=== PATIENT | male | born 1940 | race Caucasian/White ===

== ENCOUNTER 2019-06-14 15:37 | Inpatient (IN) | payer MEDICARE ==
[2019-06-13 20:43] VITALS: BP_SYST 104
[~2019-06-14] VITALS: Ht 162.6 cm; Wt 59.0 kg
[2019-06-14 15:47] VITALS: BP_SYST 125
[2019-06-14] MEDS ORDERED: LEVOFLOXACIN 500 MG/D5W 100 ML IV ONE (16:00)
[2019-06-14] MEDS ORDERED: ALBUTEROL SULFATE 0.083% 2.5 MG/3 ML VIAL.NEB INH ONE ×2 (16:00→16:05)
[2019-06-14 16:15] LABS: BASOPHILS % (AUTO) 0.2 % (0.0-2.0); EOSINOPHILS % (AUTO) 0.2 % (0.0-4.0); HEMATOCRIT 33.2 % (36-54); HEMOGLOBIN 10.8 g/dL (14.0-18.0); LYMPHOCYTES # (AUTO) 1.1 K/uL (1.0-5.5); LYMPHOCYTES % (AUTO) 6.5 % (20.5-51.5); MEAN CORPUSCULAR HEMOGLOBIN 30 pg (27-31); MEAN CORPUSCULAR HGB CONC 32 % (32-36); MEAN CORPUSCULAR VOLUME 92 fL (79.0-98.0); MONOCYTES # (AUTO) 0.6 K/uL (0.0-1.0); MONOCYTES % (AUTO) 3.5 % (1.7-9.3); NEUTROPHILS % (AUTO) 89.6 % (40.0-70.0); PLATELET COUNT (AUTO) 419 K/uL (130-430); RED BLOOD CELL COUNT(AUTO) 3.62 MIL/uL (4.2-6.2); RED CELL DISTRIBUTION WIDTH 13.8 % (9.0-15.0); WHITE BLOOD COUNT (AUTO) 16.7 K/uL (4.8-10.8)
[2019-06-14 16:24] LABS: ANION GAP 9 (5-15); CHLORIDE 106 mmol/L (98-107); GLUCOSE 157 mg/dL (70-99); POTASSIUM 4.6 mmol/L (3.5-5.1); SODIUM SERUM 140 mmol/L (136-145); UREA NITROGEN, BLOOD 29 mg/dL (8-21)
[2019-06-14 16:26] LABS: INR 2.7 (0.80-1.20); PROTHROMBIN TIME 26.7 SECS (9.5-12.5)
[2019-06-14 16:30] LABS: ALANINE AMINOTRANSFERASE 50 U/L (12-78); ALBUMIN 2.2 g/dL (3.4-4.8); ASPARTATE AMINOTRANSFERASE 63 U/L (10-37); TOTAL BILIRUBIN 0.6 mg/dL (0.0-1.0)
[2019-06-14] MEDS ORDERED: DILTIAZEM HCL 25 MG/5 ML VIAL IVP ONE (17:15)
[2019-06-14] MEDS ORDERED: DILTIAZEM HCL 125 MG in D5W 100 ML IV ONE (17:15)
[2019-06-14] MEDS ORDERED: DILTIAZEM HCL 125 MG/25 ML VIAL IV ONE (17:44)
[2019-06-14 17:50] LABS: BILIRUBIN,URINE NEGATIVE (NEGATIVE); CLARITY/URINE SL CLOUDY (CLEAR); COLOR,URINE YELLOW (YELLOW); GLUCOSE,URINE NEGATIVE (NEGATIVE); KETONES,URINE NEGATIVE (NEGATIVE); LEUKOCYTE ESTERASE ,URINE 1+ (NEGATIVE); NITRITE, URINE NEGATIVE (NEGATIVE); PH,URINE 5.5 (5.0-8.0); PROTEIN URINE NEGATIVE (NEGATIVE); UROBILINOGEN,URINE 0.2 (0.2-1.0)
[2019-06-14 17:57] LABS: BLOOD, URINE TRACE (NEGATIVE)
[2019-06-14 18:10] LABS: RBC,URINE 0-3 /HPF (0-3)
[2019-06-14 18:11] LABS: BACTERIA,URINE MODERATE /HPF (None Seen); COARSE GRANULAR CASTS,URINE 0-10 /LPF (None Seen); FINE GRANULAR CASTS,URINE 0-10 /LPF (None Seen); MUCUS,URINE 2+ /LPF (None Seen)
[2019-06-14] MEDS ORDERED: DONE5TAB26 PO (18:54)
[2019-06-14] MEDS ORDERED: OSCD500 PO (18:54)
[2019-06-14] MEDS ORDERED: PERC10 PO (18:54)
[2019-06-14] MEDS ORDERED: ALLO100T PO (18:54)
[2019-06-14] MEDS ORDERED: COLC0.6T67 PO (18:54)
[2019-06-14] MEDS ORDERED: MULT-1089 PO (18:54)
[2019-06-14] MEDS ORDERED: SENN8.6T19 PO (18:54)
[2019-06-14] MEDS ORDERED: POLY17PO4 PO (18:54)
[2019-06-14] MEDS ORDERED: WARF1TAB2 PO (18:54)
[2019-06-14] MEDS ORDERED: ACET-2165 PO (18:54)
[2019-06-14] MEDS ORDERED: DILTIAZEM HCL 25 MG/5 ML VIAL IVP SCH (19:00)
[2019-06-14 20:43] VITALS: BP_SYST 104
[2019-06-14 21:00] VITALS: BP_SYST 125
[2019-06-14] MEDS ORDERED: DILTIAZEM HCL 120 MG CAP.SR.24H PO ONE (21:00)
[2019-06-14] MEDS ORDERED: OXYCODONE/ACETAMINOPHEN *10*mg/325 mg TABLET PO PRN (21:00)
[2019-06-14] MEDS ORDERED: ACETAMINOPHEN 325 MG TABLET PO PRN (21:00)
[2019-06-14] MEDS ORDERED: COLCHICINE 0.6 MG TABLET PO PRN (21:00)
[2019-06-14] MEDS ORDERED: cefTRIAXone 1 GM in D5W 50 ML IV SCH (21:15)
[2019-06-14] MEDS: LEVOFLOXACIN 250 MG/D5W 50 ML IV SCH (21:15)
[2019-06-14 22:00] VITALS: BP_SYST 96
[2019-06-14] MEDS: NACL 0.9% 1,000 ML IV SCH (22:48)
[2019-06-14] MEDS ORDERED: cefTRIAXone 1 GM IVPB PREMIX 50 ML IV ONE (22:58)
[2019-06-14 23:00] VITALS: BP_SYST 106
[2019-06-14] MEDS: POLYETHYLENE GLYCOL 3350, 17 GM/ POWD.PACK PO SCH (23:21)
[2019-06-15] VITALS (14 sets, daily range): BP systolic 88–121
[2019-06-15 06:10] LABS: BASOPHILS # (AUTO) 0.1 K/uL (0.0-0.2)
[2019-06-15 06:22] LABS: BASOPHILS % (AUTO) 0.2 % (0.0-2.0); EOSINOPHILS % (AUTO) 0.1 % (0.0-4.0); HEMATOCRIT 27.3 % (36-54); HEMOGLOBIN 8.9 g/dL (14.0-18.0); LYMPHOCYTES # (AUTO) 1.4 K/uL (1.0-5.5); LYMPHOCYTES % (AUTO) 6.2 % (20.5-51.5); MEAN CORPUSCULAR HEMOGLOBIN 30 pg (27-31); MEAN CORPUSCULAR HGB CONC 33 % (32-36); MEAN CORPUSCULAR VOLUME 92 fL (79.0-98.0); MONOCYTES # (AUTO) 1.1 K/uL (0.0-1.0); MONOCYTES % (AUTO) 4.8 % (1.7-9.3); NEUTROPHILS # (AUTO) 19.9 K/uL (1.8-7.7); NEUTROPHILS % (AUTO) 88.7 % (40.0-70.0); PLATELET COUNT (AUTO) 330 K/uL (130-430); RED BLOOD CELL COUNT(AUTO) 2.97 MIL/uL (4.2-6.2); RED CELL DISTRIBUTION WIDTH 13.6 % (9.0-15.0); WHITE BLOOD COUNT (AUTO) 22.5 K/uL (4.8-10.8)
[2019-06-15 06:27] LABS: ALANINE AMINOTRANSFERASE 38 U/L (12-78); ALBUMIN 1.9 g/dL (3.4-4.8); ANION GAP 9 (5-15); ASPARTATE AMINOTRANSFERASE 42 U/L (10-37); CHLORIDE 107 mmol/L (98-107); CREATININE 2.07 mg/dL (0.55-1.30); GLUCOSE 103 mg/dL (70-99); PHOSPHORUS 2.8 mg/dL (2.7-4.5); POTASSIUM 5.1 mmol/L (3.5-5.1); SODIUM SERUM 136 mmol/L (136-145); TOTAL BILIRUBIN 0.6 mg/dL (0.0-1.0); UREA NITROGEN, BLOOD 37 mg/dL (8-21); URIC ACID 6.9 mg/dL (2.4-7.0)
[2019-06-15 06:58] LABS: TOTAL IRON BIND. CAPACITY 128 ug/dL (250-450)
[2019-06-15 08:04] LABS: FREE T4 (FREE THYROXINE) 1.1 ng/dL (0.6-1.6)
[2019-06-15 08:56] LABS: INR 2.7 (0.80-1.20); PROTHROMBIN TIME 26.5 SECS (9.5-12.5)
[2019-06-15] MEDS: DILTIAZEM HCL 120 MG CAP.SR.24H PO SCH (09:00)
[2019-06-15] MEDS: ALLOPURINOL 100 MG TABLET (ZYLOPRIM) PO SCH (09:47)
[2019-06-15] MEDS: POLYETHYLENE GLYCOL 3350, 17 GM/ POWD.PACK PO SCH ×2 (09:47→21:00)
[2019-06-15] MEDS: DONEPEZIL HCL 5 MG TABLET (ARICEPT) PO SCH (09:48)
[2019-06-15] MEDS: SENNOSIDES 8.6 MG TABLET PO SCH (09:48)
[2019-06-15] MEDS: MULTIVITAMINS TAB 1 TABLET PO SCH (09:48)
[2019-06-15] MEDS: NACL 0.9% 1,000 ML IV SCH ×2 (09:49→14:54)
[2019-06-15] MEDS: CALCIUM CARBONATE/VITAMIN D3 1 TAB TABLET PO SCH (09:53)
[2019-06-15] MEDS ORDERED: LEVALBUTEROL HCL 0.63 MG/3 ML VIAL.NEB INH PRN (12:30)
[2019-06-15] MEDS ORDERED: IPRATROPIUM BROM 0.5 MG/2.5 ML VIAL.NEB (ATROVENT) INH PRN (12:30)
[2019-06-15] MEDS: LEVALBUTEROL HCL 0.63 MG/3 ML VIAL.NEB INH SCH ×2 (13:00→19:54)
[2019-06-15] MEDS: IPRATROPIUM BROM 0.5 MG/2.5 ML VIAL.NEB (ATROVENT) INH SCH ×2 (13:00→19:54)
[2019-06-15] MEDS ORDERED: TAMSULOSIN HCL 0.4 MG CAP PO ONE (16:00)
[2019-06-15] MEDS ORDERED: SOD FERRIC GLUC COMPLEX/SUC 125 MG in NS 100 ML IV SCH (17:00)
[2019-06-15 17:28] LABS: BILIRUBIN,URINE NEGATIVE (NEGATIVE); BLOOD, URINE NEGATIVE (NEGATIVE); COLOR,URINE YELLOW (YELLOW); GLUCOSE,URINE NEGATIVE (NEGATIVE); KETONES,URINE NEGATIVE (NEGATIVE); LEUKOCYTE ESTERASE ,URINE NEGATIVE (NEGATIVE); NITRITE, URINE NEGATIVE (NEGATIVE); PH,URINE 5.5 (5.0-8.0); PROTEIN URINE NEGATIVE (NEGATIVE); UROBILINOGEN,URINE 0.2 (0.2-1.0)
[2019-06-15] MEDS ORDERED: EPOETIN ALFA 4,000 UNITS/ML VIAL SUBCUT ONE (17:45)
[2019-06-15] MEDS ORDERED: ACETAMINOPHEN 650 MG SUPP.RECT RC PRN (18:00)
[2019-06-15] MEDS ORDERED: LEVOFLOXACIN 500 MG/D5W 100 ML IV ONE (18:00)
[2019-06-15] MEDS ORDERED: WARFARIN SODIUM 1 MG TABLET PO SCH (18:00)
[2019-06-15] MEDS: D5NS 1,000 ML IV SCH (18:06)
[2019-06-15 18:10] LABS: CLARITY/URINE SLIGHTLY HAZY (CLEAR)
[2019-06-15] MEDS ORDERED: cefTRIAXone 1 GM in D5W 50 ML IV SCH (21:00)
[2019-06-15] MEDS: LEVOFLOXACIN 250 MG/D5W 50 ML IV SCH (21:08)
[2019-06-16] MEDS: IPRATROPIUM BROM 0.5 MG/2.5 ML VIAL.NEB (ATROVENT) INH SCH ×2 (01:39→11:19)
[2019-06-16] MEDS: LEVALBUTEROL HCL 0.63 MG/3 ML VIAL.NEB INH SCH ×2 (01:40→11:19)
[2019-06-16] MEDS: D5NS 1,000 ML IV SCH (05:01)
[2019-06-16 06:54] LABS: BASOPHILS % (AUTO) 0.2 % (0.0-2.0); EOSINOPHILS % (AUTO) 0.1 % (0.0-4.0); HEMATOCRIT 25.3 % (36-54); HEMOGLOBIN 8.2 g/dL (14.0-18.0); LYMPHOCYTES % (AUTO) 5.1 % (20.5-51.5); MEAN CORPUSCULAR HEMOGLOBIN 30 pg (27-31); MEAN CORPUSCULAR HGB CONC 32 % (32-36); MEAN CORPUSCULAR VOLUME 92 fL (79.0-98.0); MONOCYTES # (AUTO) 1.3 K/uL (0.0-1.0); MONOCYTES % (AUTO) 6.6 % (1.7-9.3); NEUTROPHILS # (AUTO) 17.1 K/uL (1.8-7.7); PLATELET COUNT (AUTO) 315 K/uL (130-430); RED BLOOD CELL COUNT(AUTO) 2.74 MIL/uL (4.2-6.2); RED CELL DISTRIBUTION WIDTH 14.1 % (9.0-15.0); WHITE BLOOD COUNT (AUTO) 19.5 K/uL (4.8-10.8)
[2019-06-16 07:06] LABS: INR 2.9 (0.80-1.20); PROTHROMBIN TIME 29.1 SECS (9.5-12.5)
[2019-06-16 08:38] LABS: ALANINE AMINOTRANSFERASE 37 U/L (12-78); ALBUMIN 1.7 g/dL (3.4-4.8); ANION GAP 11 (5-15); ASPARTATE AMINOTRANSFERASE 46 U/L (10-37); CALCIUM 7.6 mg/dL (8.4-11.0); CHLORIDE 111 mmol/L (98-107); CREATININE 2.09 mg/dL (0.55-1.30); GLUCOSE 98 mg/dL (70-99); POTASSIUM 4.3 mmol/L (3.5-5.1); SODIUM SERUM 141 mmol/L (136-145); TOTAL BILIRUBIN 0.5 mg/dL (0.0-1.0); UREA NITROGEN, BLOOD 37 mg/dL (8-21)
[2019-06-16] MEDS: SENNOSIDES 8.6 MG TABLET PO SCH (09:00)
[2019-06-16] MEDS: DONEPEZIL HCL 5 MG TABLET (ARICEPT) PO SCH (09:00)
[2019-06-16] MEDS: POLYETHYLENE GLYCOL 3350, 17 GM/ POWD.PACK PO SCH (09:00)
[2019-06-16] MEDS: MULTIVITAMINS TAB 1 TABLET PO SCH (09:00)
[2019-06-16] MEDS ORDERED: TAMSULOSIN HCL 0.4 MG CAP PO SCH (09:00)
[2019-06-16] MEDS: CALCIUM CARBONATE/VITAMIN D3 1 TAB TABLET PO SCH (09:00)
[2019-06-16] MEDS: ALLOPURINOL 100 MG TABLET (ZYLOPRIM) PO SCH (09:00)
[2019-06-16] MEDS ORDERED: DIGOXIN 0.5 MG/2 ML AMP IVP ONE ×2 (09:00→15:00)
[2019-06-16] MEDS: DILTIAZEM HCL 120 MG CAP.SR.24H PO SCH (09:00)
[2019-06-16] MEDS ORDERED: 0.45% NACL 1,000 ML IV SCH (09:30)
[2019-06-16 09:31] VITALS: BP_SYST 110
[2019-06-16 11:00] VITALS: BP_SYST 116
[2019-06-16] MEDS ORDERED: PIPERACILLIN/TAZO 2.25G/DEX-IS 50 ML IV SCH (12:00)
[2019-06-16 12:48] VITALS: BP_SYST 116
[2019-06-16] MEDS ORDERED: LEVOFLOXACIN 250 MG/D5W 50 ML IV SCH (18:00)
== END 2019-06-16 15:08 | disposition short-term general hospital (02) | DRG 871 ==
LOC: SED 15:37 → STU 18:44 → SIC 19:47 → STU 06-15 16:00
PROVIDERS: ADMIT Internal Medicine; ATTEND Internal Medicine
DX: A41.9 Sepsis, unspecified organism (principal); J69.0 Pneumonitis due to inhalation of food and vomit; N17.0 Acute kidney failure with tubular necrosis; J96.01 Acute respiratory failure with hypoxia; E43 Unspecified severe protein-calorie malnutrition; N39.0 Urinary tract infection, site not specified; I48.91 Unspecified atrial fibrillation; D64.9 Anemia, unspecified; N18.2 Chronic kidney disease, stage 2 (mild); I12.9 Hypertensive chronic kidney disease with stage 1 through stage 4 chronic kidney disease, or unspecified chronic kidney disease; Z66 Do not resuscitate; G20 Parkinson's disease; Z96.641 Presence of right artificial hip joint; R74.0 Nonspecific elevation of levels of transaminase and lactic acid dehydrogenase [LDH]; R13.10 Dysphagia, unspecified; E86.0 Dehydration; F02.80 Dementia in other diseases classified elsewhere, unspecified severity, without behavioral disturbance, psychotic disturbance, mood disturbance, and anxiety; M10.9 Gout, unspecified; M81.0 Age-related osteoporosis without current pathological fracture; E78.5 Hyperlipidemia, unspecified; Z96.651 Presence of right artificial knee joint; Z88.8 Allergy status to other drugs, medicaments and biological substances; Z79.01 Long term (current) use of anticoagulants; Z79.899 Other long term (current) drug therapy
CPT/HCPCS: 36415; 36600; 71045; 73502; 76700-TC; 80053; 81000-TC; 81003; 82140-TC; 82803-TC; 83540-TC; 83550-TC; 83605; 83735-TC; 83880; 84100-TC; 84439; 84443-TC; 84484; 84550-TC; 85025; 85610-TC; 86710; 87040-TC; 87070-TC; 87081; 87086; 87205-TC; 92610-GN; 93005; 93306; 94640; 96365; 96366; 96367; 96375; 99285; G0378; J0696; J0885; J1160; J1956; J2543; J2916; J3490; J7030; J7042; J7060; J7120; J7613; J7614